=== PATIENT | female | born 1955 | race African-American/Black ===

== ENCOUNTER 2021-02-21 10:14 | Inpatient (IN) | payer OTHER ==
[2021-02-21] VITALS (7 sets, daily range): BP systolic 85–220; BP diastolic 50–131
[~2021-02-21] VITALS: Ht 175.3 cm; Wt 118.1 kg
--- NOTE | ~2021-02-21 | EMS ---
[facility] [address] [place] [address] EMS Patient Care Report Name: MASSIMO DAILEY Room #: REG [place]#: [id number] Admission: 02/21/21 Attend Phys: Discharge: Date of : 51 Report #: [id number] THIS REPORT FOR: //name// Report Transmitted: 02/21/2021 11:11 EMS Care Summary [place], [place]/[facility] Incident [id number] @ 02/21/2021 09:53 Incident Location [address] Patient MASSIMO DAILEY Female, 65 Years 1955 Patient Address [facility][note 3] [place] [address] Patient History Congestive Heart Failure (CHF),Chronic Obstructive Pulmonary Disease (COPD),Stroke/CVA,Depression,Dialysis,Knee Replacement,Type 2 Diabetes,Novel Coronavirus (COVID-19), Patient Allergies No known allergies, Patient Medications Albuterol, Unknown, Chief Complaint SEIZURES Disposition Transported No Lights/[place] Dispatch Reason Convulsions/Seizure Transported To [facility] Narrative M36 DISPATCHED ON A CONVULSIONS. M36 ARRIVED TO PENITENTIARY TO FIND P41 AT PT [facility] [address] [place] [address] EMS Patient Care Report Name: MASSIMO DAILEY Room #: REG [place]#: [id number] Admission: 02/21/21 Attend Phys: Discharge: Date of : 51 Report #: [id number] SIDE. [place] STAFF STATED PT HAD TWO SEIZURES EACH LASTING ABOUT THREE MINUTES EACH. NH STAFF STATED PT CHIEF COMPLAINT SEIZURES. PT ALERT TO VERBAL UPON EMS ARRIVAL. PT ALERT TO SELF ONLY. PT HAD NO PRIOR HISTORY OF SEIZURES. NH STAFF STATED PT "WEAK DURING BREAKFAST AND WE HAD TO FEED HER." NH STAFF STATED PT "DIALYSIS DEPENDENT AND HER DIALYSIS WAS NORMAL YESTERDAY." NH STAFF STATED PT NORMALLY ALERT AND ORIENTED X4. NH STAFF STATED PT "NOT BEHAVING LIKE HERSELF." PT MOVED TO STRETCHER VIA FOUR PERSON SHEET LIFT. PT SECURED WITH SEATBELTS. PT VS MONTORED EN ROUTE. PT REPORT GIVEN. PT MOVED TO HOSPITAL BED VIA FOUR PERSON SHEET LIFT. PT CARE AND BELONGINGS TRANSFERRED TO ER STAFF AT [facility] WITHOUT INCIDENT. M36 PLACED BACK IN SERVICE. 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,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 FlowRate: 4 Device: Nasal Cannula (NC) Response: ImprovedSucceeded, ASSISTANT ASSOCIATE PROFESSOR,BP: 124/72 M,PULSE: 112,RR: 14 R,SPO2: 90 Ox,ETCO2: ,B,PAIN: 8,GCS: 9, 09:50,Call Received 09:50,Dispatch Notified 09:53,Dispatched 09:53,En Route 09:58,On Scene 09:59,At Patient 10:08,BP: 108/50 M,PULSE: 104,RR: 16 R,SPO2: 98 Ox,ETCO2: ,BG: ,PAIN: 6,GCS: 9, 10:09,Depart Scene 10:11,At Destination 10:14,ALS Assessment,Response: UnchangedSucceeded, 10:26,Call Closed [facility] [address] [place] [address] EMS Patient Care Report Name: MASSIMO DAILEY Room #: REG [facility]#: [id number] Admission: 02/21/21 Attend Phys: Discharge: Date of : 51 Report #: [id number] Disclaimer v1.1 Copyright 2020 [employer] This EMS Care Summary contains data elements from the applicable legal record (which may be displayed differently). It is designed to provide pertinent information for the following purposes: continuity of care, clinical quality, and state data reporting. The complete legal record is available to ED staff and administrators of the receiving hospital in ES's Patient Tracker. All data is provided "as is."
--- NOTE | 2021-02-21 10:15 | NUR ---
BG 222 UPON ARRIVAL TO ED SEIZURE PADS PLACED FOR PT SAFETY
--- NOTE | 2021-02-21 10:30 | NUR ---
PLEASE SEE TRIAGE NOTE. PT PLACED ON 2L NC FOR O2 SATS BEING HIGH 80'S. PT DOES NOT WEAR OXYGEN DAILY. PT OTHER VSS ON 2L NC. PT REMAINS POST ICTAL AT THIS TIME PT STATED TO NORMALLY BE A&OX4, GCS 15. PT SKIN PT IS HOT TO THE TOUCH. PT IS NOT KNOWN TO HAVE ANY SEIZURE HX. PT STAFF STATED PT NEEDED HELP EATING THIS AM WHICH IS ABNORMAL FOR PT. WILL CLOSELY MONITOR PT
[2021-02-21 10:49] LABS: BE(vivo) 6.4 mmol/L (-2 to +3); HCO3 31.3 mmol/L (22.0-26.0); PCO2 46.5 mmHg (35.0-45.0); PO2 81.8 mmHg (80.0-100.0); pH 7.446 (7.360-7.450); sO2 96.4 % (92.0-98.0)
[2021-02-21 11:01] LABS: HEMOGLOBIN 10.7 gm/dL (12.0-15.0); MCH 26.2 pg (26.0-34.0); MCHC 30.5 g/dL (28.0-37.0); MCV 85.9 fL (80.0-100.0); PLATELET COUNT 200 thou/uL (150-400); RBC 4.08 mil/uL (4.20-5.00); RDW 15.4 % (10.5-14.5); WBC 11.4 thou/uL (4.0-11.0)
[2021-02-21 11:12] LABS: CALCIUM 9.3 mg/dL (8.5-10.1); CREATININE 4.6 mg/dL (0.6-1.0); POTASSIUM 4.9 mmol/L (3.5-5.1)
[2021-02-21] MEDS ORDERED: TYLENOL325 MG PO (11:18)
[2021-02-21 11:22] LABS: ALBUMIN 2.7 g/dL (3.4-5.0); MAGNESIUM 2.1 mg/dL (1.8-2.4); TOTAL BILIRUBIN 0.4 mg/dL (0.2-1.0); TOTAL PROTEIN 7.3 g/dL (6.4-8.2); TROPONIN-I 0.13 ng/mL (<0.06)
[2021-02-21] MEDS ORDERED: LIPITOR40 MG PO (11:26)
[2021-02-21] MEDS ORDERED: BRIMONIDINE 0.110 ML OPHTHALMIC (11:27)
[2021-02-21] MEDS ORDERED: PLAVIX 75 MG TA75 MG PO (11:27)
[2021-02-21] MEDS ORDERED: CLARITIN10 M3 PO (11:27)
[2021-02-21] MEDS ORDERED: COLACE1 EAC1 PO (11:28)
[2021-02-21] MEDS ORDERED: VOLTAREN GEL 1100 GM TOP (11:28)
[2021-02-21] MEDS ORDERED: KRISTALOSE20 GM PO (11:29)
[2021-02-21] MEDS ORDERED: NEURONTIN100 MG PO ×2 (11:32→11:38)
[2021-02-21] MEDS ORDERED: LANTUS SUBQ (11:39)
[2021-02-21 11:43] LABS: ABSOLUTE NEUTROPHILS 9.6 thou/uL (1.4-8.2); PLATELET ESTIMATE NORMAL
[2021-02-21 11:49] LABS: INR 1.05; PROTIME 11.4 Seconds (10.5-12.1)
[2021-02-21] MEDS ORDERED: HUMALOG100 UNIT/1 SUBQ (12:03)
[2021-02-21] MEDS ORDERED: IPRAT-ALBUT 0.5-3 ML INH (12:06)
[2021-02-21] MEDS ORDERED: LATANOPROST1 GM OPHTHALMIC (12:12)
--- NOTE | 2021-02-21 12:12 | NUR ---
CT SHOWS INFARCT. PT HAS HX OF STROKE. PT NOTES THAT SHE DOES NOT MAKE ANY URINE ON HER OWN. PT IS A DIAYLSIS PT, PT STATED TO HAVE HAD FULL TREATMENT OF DIAYLSIS YESTERDAY. PT STATES GENERALIZED WEAKNESS AND THAT SHE DOES NOT WALK AND IS WHEELCHAIR BOUND. PT STATES RESIDUAL EFFECTS OF RIGHT SIDED WEAKNESS. PT DENIES PAIN TO THIS RN
[2021-02-21] MEDS ORDERED: MELATONIN3 M1 PO (12:23)
[2021-02-21] MEDS ORDERED: BAZA CR.1 E1 TOP (12:25)
[2021-02-21] MEDS ORDERED: MILK OF MA400 MG/5 M PO (12:25)
[2021-02-21] MEDS ORDERED: ONDANSETRON ODT4 MG PO (12:26)
[2021-02-21] MEDS ORDERED: ROXICODONE5 M2 PO (12:28)
[2021-02-21] MEDS ORDERED: OXYCODONE HCL5 M1 PO (12:30)
--- NOTE | 2021-02-21 12:32 | NUR ---
LAST KNOWN WELL PER DC WAS 1899 YESTERDAY 02/20/21
--- NOTE | 2021-02-21 13:14 | EKG ---
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
[2021-02-21] MEDS ORDERED: MIRALAX119 GM PO (13:28)
[2021-02-21] MEDS ORDERED: AKWA TEARS EYE15 ML OPHTHALMIC (13:28)
[2021-02-21] MEDS ORDERED: TESSALON PERLE100 M1 PO (13:29)
[2021-02-21] MEDS ORDERED: SENNA8.6 MG PO (13:29)
[2021-02-21] MEDS ORDERED: TIMOLOL MALEATE5 M2 OPHTHALMIC (13:30)
--- NOTE | 2021-02-21 14:46 | NUR ---
STRAIGHT CATHETER FOR URINE AT THIS TIME. STERILE TECHNIQUE MAINTAINED. PT TOLERATED PROCEDURE WELL. PT HAD LARGE AMOUNT OF YEAST, WHICH WAS CLEANED UP. PT URINE DARK YELLOW AND CLOUDY. ED PROVIDER NOTIFIED
[2021-02-21 15:15] LABS: URINE BILIRUBIN NEGATIVE (Negative); URINE BLOOD 3+ (Negative); URINE COLOR YELLOW; URINE GLUCOSE-RANDOM* NEGATIVE (Negative); URINE KETONES NEGATIVE (Negative); URINE LEUKOCYTES-REFLEX 3+ (Negative); URINE NITRITE-REFLEX NEGATIVE (Negative); URINE PROTEIN (DIPSTICK) 3+ (Negative); URINE SPECIFIC GRAVITY 1.025 (1.005-1.035); URINE UROBILINOGEN 0.2 E.U./dl (0.2-1.0)
[2021-02-21 15:16] LABS: CASTS None Seen /LPF (None Seen); SQUAMOUS 0-3 Few /LPF (0-3); URINE CLARITY CLOUDY
[2021-02-21 15:17] LABS: BACTERIA-REFLEX >30 Many /HPF (None Seen); CRYSTALS None Seen /LPF (None Seen); URINE WBC-REFLEX >25 Many /HPF (0-5)
--- NOTE | 2021-02-21 17:55 | NUR ---
PT CARE ASSUMED AT 1600. ASSESSMENTS CHARTED. MEDICATIONS CHARTED. RAC IV. SINUS RHYTHM. O2 2LPM NC. DIALYSIS MWF. 1ST MODERNA VACCINE. SEIZURES X 2, 3 MINUTES EACH. NPO. AO X 4, WHEN RESPONSIVE. SLEEPING. ADMISSION FROM IGNITE; PT UNABLE TO RESPOND FULLY TO ADMISSION QUESTIONS.
[2021-02-22] VITALS (9 sets, daily range): BP systolic 116–136; BP diastolic 40–88
--- NOTE | 2021-02-22 03:57 | NUR ---
PT IS AWAKE AND ALERT. DROWSY AND SLEEPY. RESPONDS SOME BUT MINIMAL INTERACTION. PT IS HERE FROM [facility]. REPOS IN BED FOR COMFORT. USED PILLOWS. HANDS HAVE CARPED LUNNEL. MEDS AND NURSING CARE PROIDED. [facility] WITHIN REACH
--- NOTE | 2021-02-22 16:20 | NUR ---
PT CARE ASSUMED AT 0700. ASSESSMENTS CHARTED. MEDICATIONS CHARTED. RAC IV. SINUS RHYTHM. ANURIC. PT TAKES PILLS WHOLE. PT AWAKENED AND ASKED FOR FOOD. PT PLACED ON A RENAL DIET PER DR MCNAIR. O2 2LPM NC. ACHS.
[2021-02-23] VITALS (7 sets, daily range): BP systolic 102–148; BP diastolic 42–96
--- NOTE | 2021-02-23 07:30 | NUR ---
SLEPT ALL NIGHT BUT THIS MORNING STARTED CONVERSATION ABOUT THE DICLOFENAC GEL.DENIES PAIN.DIALYSIS TODAY.MONITOR SHOWS SR.POC CONTINUED.
[2021-02-23 09:02] LABS: HEMATOCRIT 33.5 % (37.0-47.0); HEMOGLOBIN 10.2 gm/dL (12.0-15.0); MCH 26.3 pg (26.0-34.0); MCHC 30.3 g/dL (28.0-37.0); RBC 3.85 mil/uL (4.20-5.00); RDW 15.7 % (10.5-14.5); WBC 7.8 thou/uL (4.0-11.0)
[2021-02-23 09:09] LABS: ANION GAP 9 mmol/L (7-16); BUN 44 mg/dL (7-18); CALCIUM 8.8 mg/dL (8.5-10.1); CHLORIDE 103 mmol/L (98-107); CO2 27 mmol/L (21-32); GLUCOSE 105 mg/dL (74-106); POTASSIUM 5.4 mmol/L (3.5-5.1); SODIUM 139 mmol/L (136-145)
[2021-02-23 09:13] LABS: CREATININE 6.6 mg/dL (0.6-1.0)
--- NOTE | 2021-02-23 17:54 | NUR ---
PT CARE ASSUMED AT 0700. ASSESSMENTS CHARTED. MEDICATIONS CHARTED. RAC IV. SINUS RHYTHM. ANURIC. DIALYSIS MWF; 2000 ML REMOVED. ACHS; RENAL DIET. O2 2LPM NC; PT REMOVES. PT PREFERS TO EAT WITH PLATE IN LAP. HAS DIFFICULTY SEEING MEAL OTHERWISE.
--- NOTE | 2021-02-23 22:23 | HC ---
[facility] [place] [address] CONSULTATION Name: MASSIMO DAILEY Room #: 202-P ADM IN M.R.#: [id number] Admission: 02/21/21 Attend Phys: Joycelyn Tavarez MD Discharge: Date of : 53 Report #: [id number] THIS REPORT FOR: cc: Jose York MD, Christopher B. MD Khosla, Parveen K. MD ~ DOC #: [id number] Dileep Arizmendi MD DATE OF SERVICE: 02/21/2021 HISTORY OF PRESENT ILLNESS: A 65-year-old female patient who is unable to provide any history at all. I talked to emergency room physician and got some history from him and subsequently, I was able to reach the patient's son and he provided some history. He gives a history that this patient lives in what she described as assisted living and she was admitted with a seizure. He gives a pretty involved history in this patient. This patient apparently had strokes in the past. He does not know exactly when the strokes happened, but looks like a few months ago at least and she lost her speech during one of those strokes. She gained some of it back. Then, she developed COVID. After she developed COVID, she went down. Before that, she was able to ambulate, but since the COVID, she is not able to ambulate. Prior to COVID, she needed a walker for short distance and a wheelchair for long distance, but now she cannot walk according to him. REVIEW OF SYSTEMS: A 14-point review of system was carried out and looks like she has a history of heart failure, chronic obstructive pulmonary disease, history of stroke, depression, dialysis, knee replacement, diabetes, and now seizure. There was a relevant 14-point review of system. PAST MEDICAL HISTORY: Positive for stroke, but seizures appeared to be new talking to the emergency room physician. It would appear that this patient also has sepsis. PAST MEDICAL HISTORY: Positive for stroke. FAMILY HISTORY: Unremarkable. SOCIAL HISTORY: She lives in what son described as assisted living. PHYSICAL EXAMINATION: Pretty limited. This patient did not say a single word to me. She will not follow commands. That made examination very difficult. We could not check the memory or fund of knowledge. Cranial nerve examination II-XII was attempted, but it was impossible to carry out and look for any focality. Similarly, I cannot tell if she can move anything or not and I do not tell how much is new. Sensory system examination [place] [address] CONSULTATION Name: MASSIMO DAILEY Room #: 202-P [facility] IN ..#: [id number] Admission: 02/21/21 Attend Phys: Joycelyn Tavarez MD Discharge: Date of : 51 Report #: [id number] possible to do the cerebellar exam in this patient. Cardiac examinations appear mostly unremarkable. VITAL SIGNS: Her blood pressure is 220/131, respirations 20, pulse is 97, and temperature is 98.1. LABORATORY DATA: Indicate a white count of 11.4 and she has a UTI. WBC count of more than 25. IMPRESSION: This patient has multiple problems. She had a stroke in the past, which is a nidus for seizure. On top of that, she has developed UTI and which probably triggered the seizure. She could have had another stroke also, which could have triggered the seizure. She needs to be on lifelong anticonvulsant. They gave 500 mg of Keppra there. We will continue somewhat reduced dose because of the renal failure and we will give her once a day. She is already on gabapentin and looks like seizures occurred in spite of gabapentin and that is usually a bad news. Her prognosis is guarded, but we will see what the MRI shows, what the EEG shows, which has been ordered and further management will depend upon that. I spent more than 50 minutes of time taking care of this patient including counseling, coordinating, and reviewing her studies and records. Dileep Arizmendi MD PK/[facility] <ELECTRONICALLY SIGNED> By: Dileep Arizmendi MD 02/23/213 1735 19 Dileep Arizmendi MD /nt
--- NOTE | 2021-02-23 22:23 | EEG ---
[facility] [place] [address] ELECTROENCEPHALOGRAM Name: MASSIMO DAILEY Room #: 202-P [facility] IN M.R.#: [id number] Admission: 02/21/21 Attend Phys: Joycelyn Tavarez MD Discharge: Date of : 51 Report #: [id number] THIS REPORT FOR: //name// DOC #: [id number] Dileep Arizmendi MD DATE OF SERVICE: 02/22/2021 This patient is being evaluated for seizure. EEG was done by placing the electrode by standard 10-20 system of electrode placement. Both referential and sequential montages were used for recording. Background activity in this patient's EEG is about 7 Hz and 30 microvolt. The photic stimulation is unremarkable. EEG becomes even somewhat more slow and that may be associated with some sleep Throughout the record, no active epileptiform activity was noticed. IMPRESSION: This is an abnormal EEG because it is disorganized and poorly formed. There is a nonspecific abnormality which can occur with encephalopathy, effect of psychotropic medication, dementia, etc. Clinical correlation is recommended. Dileep Arizmendi MD PK/[facility] <ELECTRONICALLY SIGNED> By: Dileep Arizmendi MD 02/23/21 2223 0943 0955 Dileep Arizmendi MD /nt
[2021-02-24 04:45] VITALS: BP 123/42
--- NOTE | 2021-02-24 06:38 | NUR ---
PAIN WELL CONTROLLED WITH HYDROCODONE.TURN Q2.MONITOR SHOWS SR.POC CONTINUED.
[2021-02-24 07:38] VITALS: BP 133/30
--- NOTE | 2021-02-24 09:35 | NUR ---
Patient admits with seizures. Patient admits from [facility]. She is ltc. Recently skilled care at [facility]. Patient A/O aware of possible dc to [facility] today. Patient with possible dc after MRI. Faxed clinical update to [facility]. Updated [facility]. Sp with Criss at [facility]. casemgt following.
[2021-02-24 11:35] LABS: ALBUMIN 2.4 g/dL (3.4-5.0); CHOLESTEROL 118 mg/dL (<200); DIRECT BILIRUBIN < 0.1 mg/dL (<0.1-0.2); HDL CHOLESTEROL 35 mg/dL (>40); LDL CHOLESTEROL 64 mg/dL (<100); SGOT 19 U/L (15-37); SGPT 9 U/L (30-65); TC:HDL 3.4 Ratio (Not establshd); TOTAL BILIRUBIN 0.3 mg/dL (0.2-1.0); TOTAL PROTEIN 6.7 g/dL (6.4-8.2); TRIGLYCERIDE 99 mg/dL (<150); VLDL 20 mg/dL (<40)
[2021-02-24 12:30] VITALS: BP 134/62
--- NOTE | 2021-02-24 12:48 | NUR ---
1030 DR GONZALES CALLED CONCERNING ECHO REPORT. DR PANDA INFORMED AND ORDERS NOTED
[2021-02-24 16:31] VITALS: BP 113/56
[2021-02-24 17:06] LABS: HEP B SURFACE Ab(ANTI-HBS Reactive (()); HEPATITIS B SURFACE AG Negative (Negative)
--- NOTE | 2021-02-24 19:33 | NUR ---
PATIENT IS PROGRESSING TOWARDS OUTCOME GOALS, AFEBRILE TODAY. REMAINS A/O X4. ASSIST WITH TURNING AND REPOSITIONING Q2H. MRI SHEET FAXED TO MRI THIS AM AND AGAIN THIS AFTERNOON, NO ONE IN MRI WHEN CALLED AT 1630 TODAY. FAMILY IN TO VISIT.
[2021-02-24 20:56] VITALS: BP 136/60
[2021-02-25 03:30] VITALS: BP 158/75
[2021-02-25 07:10] VITALS: BP 147/61
--- NOTE | 2021-02-25 07:40 | NUR ---
PATIENTS CARES WERE ASSUMED AT SHIFT CHANGE.PATIENT WAS ASSESSED AND MEDS WERE PASSED. PATIENT IS A PLEASENT LADY. SHE HAD A STOOL THIS SHIFT. SOFT STOOL. PATIENT REQUESTED THAT SHE BE GIVEN A BRIEF WHEN SHE GO DOWN FOR HER CHAY. ROUNDS WERE MADE AND THE BED IS IN A LOW AND LOCKED POSITION.
[2021-02-25 11:10] VITALS: BP 157/84
[2021-02-25 15:10] VITALS: BP 149/89
--- NOTE | 2021-02-25 15:47 | NUR ---
cm provided faheem with ignite/car[place]let with updated on pt.
--- NOTE | 2021-02-25 16:54 | NUR ---
ASSESSMENT CHARTED - MEDS PER NOV - GIVEN HYDROCODONE FOR CO'S OF PAIN IN KNEES WITH MOD RELIEF. NYDIA DIET AND FLUIDS. HAS SPENT THE DAY RESTING IN BED. PT INCONTINENT OF STOOL - BOTTOM NOTED TO BE INTACT WITH NO REDNESS NOTED - PT NOTED TO HAVE SOFT - BOGGY HEELS - HEELS PLACED ON PILLOW. DIALYSIS COMPLETED THIS AM 2.5 LETRES REMOVED. CHAY CANCELLED FOR TODAY AND TO BE DONE TOMORROW DUE TO CONFLICT WITH DIALYSIS. PT WAS TO HAVE MRI TODAY , DUE TO PACER IN R CHEST TEST NOT ABLE TO BE COMPLETED - NEURO MADE AWARE. NO CO'S AT THE PRESENT TIME APPEARS TO BE RESTING COMFORTABLY.
[2021-02-25 19:49] VITALS: BP 150/74
[2021-02-26] VITALS (8 sets, daily range): BP systolic 139–210; BP diastolic 47–102
[2021-02-26 04:54] LABS: HEMATOCRIT 37.4 % (37.0-47.0); HEMOGLOBIN 11.3 gm/dL (12.0-15.0); MCHC 30.2 g/dL (28.0-37.0); MCV 86.2 fL (80.0-100.0); RBC 4.33 mil/uL (4.20-5.00); WBC 6.8 thou/uL (4.0-11.0)
[2021-02-26 05:17] LABS: CALCIUM 9.5 mg/dL (8.5-10.1); POTASSIUM 4.7 mmol/L (3.5-5.1)
[2021-02-26 05:34] LABS: CREATININE 4.1 mg/dL (0.6-1.0)
--- NOTE | 2021-02-26 07:23 | NUR ---
PATIENTS CARES WERE ASSUMED AT SHIFT CHANGE,. PATIENT WAS ASSESSED AND MEDS WERE PASSED. PATIENT HAD 2 BMS THIS SHIFT. PATIENT ONLY STATES SHE WANTS TO GO HOME.
--- NOTE | 2021-02-26 09:38 | 2DMMODE ---
[facility] [place] [address] 2 D/M-MODE ECHOCARDIOGRAM Name: MASSIMO DAILEY Room #: 202-P [facility] IN .R.#: [id number] Admission: 02/21/21 Attend Phys: Joycelyn Tavarez MD Discharge: Date of : 51 Report #: [id number] THIS REPORT FOR: cc: Jose York MD, Christopher B. MD Santiago, Patrick MD [facility] ~ ADDENDUM APPROVED REPORT Study performed: 02/24/2021 08:05:23 EXAM: Comprehensive 2D, Doppler, and color-flow Echocardiogram Patient Location: In-Patient Room #: 202 Status: routine BSA: 2.31 HR: 70 bpm BP: 133/41 mmHg Rhythm: NSR Other Information Study Quality: Good Risk Factors: Cardiac Risk Factors: HTN Indications Mitral Valve Disease CVA/TIA 2D Dimensions RVDd: 54.22 mm IVSd: 14.55 (7-11mm) LVOT Diam: 24.16 (18-24mm) LVDd: 43.50 mm PWd: 13.22 (7-11mm) LVDs: 29.46 (25-40mm) Left Atrium: 56.26 (27-40mm) Aortic Root: 24.71 mm Volumes Left Atrial Volume (Systole) Single Plane 4CH: 69.50 mL Single Plane 2CH: 86.28 mL Biplane LA Volume: 86.00 mL LA ESV Index: 37.00 mL/m2 Aortic Valve [facility] [address] [place] [address] 2 D/M-MODE ECHOCARDIOGRAM Name: MASSIMO DAILEY Room #: 202-P [facility] IN .R.#: [id number] Admission: 02/21/21 Attend Phys: Joycelyn Tavarez MD Discharge: Date of : 51 Report #: [id number] AoV Peak Curly.: 2.35 m/s AO Peak Gr.: 22.04 mmHg LVOT Max P.36 mmHg AO Mean Gr.: 10.48 mmHg LVOT Mean P.42 mmHg AO V2 Mean: 1.49 m/s LVOT Max V: 1.04 m/s AO V2 VTI: 53.83 cm LVOT Mean V: 0.72 m/s PAOLO (VTI): 2.09 cm2 LVOT V1 VTI: 24.52 cm PAOLO Vmax: 2.04 cm2 AI Vmax: 4.66 m/s SV (LVOT): 112.38 mL AI Humphreys: 4.26 m/s2 AI PHT: 319.39 ms Mitral Valve MV Peak Gr.: 26.85 mmHg MV Mean Gr.: 11.02 mmHg E/A Ratio: 1.3 MV Decel. Time: 206.93 ms MV E Max Curly.: 2.24 m/s MV A Curly.: 1.77 m/s MV Max Curly.: 2.59 m/s MV Mean Curly.: 1.50 m/s MV VTI: 774.50 mm MVA VTI: 145.10 mm2 MV PHT: 60.01 ms MVA (PHT): 3.72 cm2 IVRT: 46.14 ms Pulmonary Valve PV Peak Curly.: 1.03 m/s PV Peak Gr.: 4.27 mmHg Pulmonary Vein P Vein S: 0.44 m/s P Vein A: 0.19 m/s P Vein D: 0.54 m/s P Vein A Dur.: 115.3 msec P Vein S/D Ratio: 0.81 Tricuspid Valve TR Peak Curly.: 3.89 m/s RAP Estimate: 7.00 mmHg TR Peak Gr.: 60.44 mmHg RVSP: 67.00 mmHg Left Ventricle The left ventricle is normal size. There is normal LV segmental wall motion. Mild to moderate concentric left ventricular hypertrophy. Left ventricular systolic function is normal. The left ventricular ejection fraction is within the normal range. LVEF is 65-70%. Transmitral Doppler flow pattern suggests impaired LV relaxation[place] [address] 2 D/M-MODE ECHOCARDIOGRAM Name: MASSIMO DAILEY Room #: 202-P [facility] IN M.R.#: [id number] Admission: 02/21/21 Attend Phys: Joycelyn Tavarez MD Discharge: Date of : 51 Report #: [id number] Right ventricle is dilated. Right ventricle is mildly hypokinetic. Atria Left atrium is mildly dilated. Right atrium is dilated. Aortic Valve Aortic valve leaflets are moderately thickened. Mild-moderate aortic regurgitation. Mild aortic stenosis. Highest mean aortic valve gradient is 10mmHg Calculated PAOLO by the continuity equation is __2.0__cm2. Mitral Valve The mitral valve is normal in structure. There is a bioprosthetic mitral valve. Mild mitral regurgitation. There is normal mitral valve excursion. Tricuspid Valve Doppler gradients for this tricuspid valve are normal. Mild to moderate tricuspid regurgitation. The RVSP is _67 mmHg. Two small tricuspid valve vegetation is present. Pulmonic Valve The pulmonary valve is normal in structure. There is no pulmonic valvular regurgitation. Great Vessels The aortic root is normal in size. IVC is normal in size and collapses >50% with inspiration. Pericardium There is no pericardial effusion. There is no pleural effusion. <Conclusion> Normal left ventricular size with moderate concentric hypertrophy Ejection fraction 60% Right ventricle mildly dilated/hypokinetic Mild biatrial enlargement Color-flow Doppler study performed of the aortic/mitral/tricuspid/pulmonary valve Aortic valve moderately calcified Mild aortic valve stenosis with an aortic valve area estimated two-point centimeters square and a mean gradient of [address] [address] 2 D/M-MODE ECHOCARDIOGRAM Name: DAILEYMASSIMO Room #: 202-P [facility] IN M.R.#: [id number] Admission: 02/21/21 Attend Phys: Joycelyn Tavarez MD Discharge: Date of : 51 Report #: [id number] Mild-Moderate aortic valve insufficiency Moderate the mitral annular calcification Mild mitral valve insufficiency Mobile echogenicity/- 1.5 long, 0.5 cm wide, anterior leaflet of the tricuspid valve, atrial size, cannot rule out vegetation Mild tricuspid valve insufficiency Severe pulmonary hypertension, PA pressure estimated 67 mmHg No pericardial effusion Normal aortic root size. Please note findings mitral valve re: questionable vegetation CHAY may be helpful to further delineate echogenicity mitral valve <ELECTRONICALLY SIGNED> By: Kevin Gee MD, FACC 02/26/2137 6 Kevin Gee MD, FACC /INF
--- NOTE | 2021-02-26 10:47 | TEE ---
[facility] [place] [address] TRANSESOPHAGEAL ECHOCARDIOGRAM Name: MASSIMO DAILEY Room #: 202-P [facility] IN M.R.#: [id number] Admission: 02/21/21 Attend Phys: Joycelyn Tavarez MD Discharge: Date of : 51 Report #: [id number] THIS REPORT FOR: cc: Jose York MD, Christopher B. MD Santiago, Patrick MD [facility] ~ ADDENDUM APPROVED REPORT Study performed: 02/26/2021 08:12:39 EXAM: Comprehensive 2D, Doppler, and color-flow Echocardiogram Patient Location: In-Patient Room #: 9 Status: routine BSA: 2.31 HR: 83 bpm BP: 130/44 mmHg Rhythm: NSR Other Information Study Quality: Good Indications Endocarditis Echo Enhancing Agent Indication: Rule out Shunt Agent(s) / Amount(s) Used: Agitated Saline 7 cc Procedure After obtaining informed consent, patient underwent transesophageal echo in the [facility] [employer]. Type of Sedation : Conscious Sedation Sedation was administered by Janina Peña RN. Sedation start time: 829 Case end Time: 837 Sedation was achieved intravenously with: Versed (3 mg) Fentanyl (50 mcg) Transesophageal probe was inserted and advanced into esophagus without difficulty by Kevin Gee MD. Echo enhancement indication: R/O Septal defect. Echo enhancement agent administered: Agitated Saline The CHAY was performed without complications. Throughout the procedure, the blood pressure, pulse oximetry, cardiac [facility] [address] [place] [address] TRANSESOPHAGEAL ECHOCARDIOGRAM Name: MASSIMO DAILEY Room #: 202-P ADM IN M.R.#: [id number] Admission: 02/21/21 Attend Phys: Joycelyn Tavarez MD Discharge: Date of : 51 Report #: [id number] rhythm, and rate were monitored. The patient tolerated the procedure without adverse effects. Recovery from conscious sedation was uneventful and vital signs were stable. Left Ventricle The left ventricle is normal size. There is normal LV segmental wall motion. Moderate concentric left ventricular hypertrophy. The left ventricular systolic function is normal. The left ventricular ejection fraction is within the normal range. LVEF is 55-60%. Right Ventricle Right ventricle is dilated. Right ventricle is hypokinetic. Atria Left atrium is dilated. Right atrium is dilated. Aortic Valve The aortic valve is normal in structure. Aortic valve is calcified. Trace aortic regurgitation. Small aortic valve vegetation is present. Mild aortic stenosis. Mitral Valve Bioprosthesis leaflets are thickened Mild mitral regurgitation. Tricuspid Valve The tricuspid valve is normal in structure. Mild to moderate tricuspid regurgitation. Moderate size tricuspid valve vegetation is present. Vegetation is independently mobile. Pulmonic Valve The pulmonary valve is normal in structure. Great Vessels The aortic root is normal in size. Pericardium There is no pericardial effusion. <Conclusion> Consent was obtained Timeout performed After appropriate sedation esophageal probe was advanced without difficulty [facility] [address] [place] [address] TRANSESOPHAGEAL ECHOCARDIOGRAM Name: MASSIMO DAILEY Room #: 202-P ADM IN M.R.#: [id number] Admission: 02/21/21 Attend Phys: Joycelyn Tavarez MD Discharge: Date of : 51 Report #: [id number] Normal left ventricle size with moderate concentric hypertrophy Ejection fraction 60% Right ventricle mildly dilated/hypokinetic Mild biatrial enlargement Aortic valve trileaflet Small echogenicity less than 0.5 cm/around the noted at the base suggestive of vegetation Moderate mitral annular calcification. No obvious vegetation detected Mild mitral valve insufficiency Pulmonary valve appears normal Echogenicity noted at the tricuspid valve about 0.5 to 1 cm in length/mobile suggestive of vegetation Mild to moderate tricuspid valve insufficiency No pericardial effusion Normal aortic root size Aorta minimal calcification Study is suggestive of vegetations at the tricuspid valve as well as aortic valve No evidence of ASD/VSD by color flow/bubble study Patient tolerated procedure well <ELECTRONICALLY SIGNED> By: Kevin Gee MD, FACC 02/26/217 46 46 Kevin Gee MD, FACC /INF
--- NOTE | 2021-02-26 11:32 | HC ---
[facility] [place] [address] CONSULTATION Name: MASSIMO DAILEY Room #: 202-P ADM IN M.R.#: [id number] Admission: 02/21/21 Attend Phys: Joycelyn Tavarez MD Discharge: Date of : 51 Report #: [id number] THIS REPORT FOR: cc: Jose York MD, Christopher B. MD Barry, Joseph W. MD ~ DOC #: [id number] Mayur Kaur MD DATE OF SERVICE: 02/24/2021 INFECTIOUS DISEASE CONSULTATION ATTENDING PHYSICIAN: Dr. Tavarez. REASON FOR EVALUATION: Possible endocarditis. HISTORY OF PRESENT ILLNESS: Chart was reviewed. The patient was examined. This is a 65-year-old woman with known diabetes mellitus, has been complicated by end-stage renal disease. She is on thrice weekly hemodialysis, she states for about 5 years, who presented with describes new onset seizures, these were witnessed apparently at the facility she resides. Evaluation was undertaken. CT suggested possible subacute left parietal infarct. She is scheduled to undergo MRI, for further evaluation underwent CHAY, question of a tricuspid valve vegetations noted. On echo, there is question of prosthetic heart valve, although she denies any previous history. There is probably a degree of encephalopathy; however. She denies significant pain and it is not clear from discussion that she has had any fevers, although on admission, her temperature was up to 102. She was evaluated with straight catheterization. Denies urine output, was able to collect some urine. She had moderate to marked pyuria. Culture was unrevealing with growth of multiple organisms, treated empirically with ceftriaxone and a dose of vancomycin. ALLERGIES: None known. MEDICATIONS: Currently include docusate sodium, levetiracetam, acetaminophen and hydrocodone, ceftriaxone, clopidogrel, atorvastatin, diclofenac, Timolol, ____. PAST MEDICAL HISTORY: As described above, diabetes mellitus complicated by end-stage renal disease on hemodialysis, peripheral neuropathy, previous stroke with right hemiparesis, has a cardiomyopathy, history of congestive heart failure, rheumatic heart disease, previous prosthetic mitral valve replacement, COPD, chronic respiratory failure, onset seizure. SOCIAL HISTORY: Nonsmoker, no ethanol, no illicit drug use. [facility] [address] [place] [address] CONSULTATION Name: MASSIMO DAILEY Room #: 202-P [facility] IN [facility].#: [id number] Admission: 02/21/21 Attend Phys: Joycelyn Tavarez MD Discharge: Date of : 51 Report #: [id number] FAMILY HISTORY: Noncontributory. REVIEW OF SYSTEMS: Otherwise unremarkable. Does admit to bilateral lower extremity pain as her complaint. PHYSICAL EXAMINATION: GENERAL: She appears chronically ill, undernourished. She is obese, mild to moderate distress, mildly encephalopathic. VITAL SIGNS: Temperature 97.8, pulse 76, respirations 16, blood pressure is 157/84. SKIN: Warm, dry, no rashes. HEENT: Normocephalic. Extraocular muscles intact. NECK: Supple. LUNGS: Scattered crackles at the bases. HEART: Regular. I do not appreciate any murmur. ABDOMEN: Obese, soft and nontender. No peritoneal signs. EXTREMITIES: Lower extremities have small amount of edema. /RECTAL: Deferred. LABORATORY DATA: Electrolytes from yesterday, sodium 139, potassium 5.4, chloride 103, bicarbonate 27, anion gap of 9, BUN and creatinine 44 and 6.6, glucose of 105, albumin of 2.4, total protein 6.7. Echo notes the mitral prosthetic valve. Other comments that may have vegetation on the tricuspid valve described as ____ small aortic valve, was moderately thickened, mild to moderate aortic regurgitation, mild stenosis. White count of 7.8, H and H 10.2 and 33.5, platelets of 163. Blood cultures collected on the are sterile thus far. Repeat cultures are pending. ASSESSMENT: 1. Possible tricuspid valve vegetation. 2. Known history of mitral valve replacement with bioprosthesis. 3. Diabetes mellitus complicated by vasculopathy. 4. End-stage renal disease on dialysis. 5. Peripheral neuropathy. 6. Cardiomyopathy with congestive heart failure. 7. Morbid obesity. 8. Malnutrition. 9. Onset of seizures with previous history of stroke. PLAN: We will continue to pursue a diagnosis noted CHAY scheduled for tomorrow. We will await those results. I think it is reasonable to discontinue the ceftriaxone at this point. She was febrile when she came in, probably has adequate treatment for UTI as difficult to assess, short of doing additional [address] [address] CONSULTATION Name: DAILEYMASSIMO Room #: 202-P [facility] IN M.R.#: [id number] Admission: 02/21/21 Attend Phys: Joycelyn Tavarez MD Discharge: Date of : 51 Report #: [id number] procedure with straight catheterization, difficult to ascertain the degree of baseline encephalopathy. No evidence of peripheral signs of SBE, clinically is not overtly toxic ____ acute infectious endocarditis. We will add incentive spirometry. We will follow. Mayur Kaur MD JWB/ALL <ELECTRONICALLY SIGNED> By: Mayur Kaur MD 02/26/21 1132 [id number] Mayur Kaur MD /nt
--- NOTE | 2021-02-26 16:01 | NUR ---
[facility] updated and they can accept the pt and provide iv atb and dialysis. She still has skilled medicare days and she is also a ltc resident there. Pt had CHAY today. DC time frame uncertain. She will likely need 4-6 weeks of iv atb.
[2021-02-27 03:40] VITALS: BP 133/70
--- NOTE | 2021-02-27 05:17 | NUR ---
PATIENTS CARES WERE ASSUMED AT SHIFT CHANGE. PATIENT WAS ASSESSED AND MEDS WERE PASSED. PATIENT DID SLEEP THE MAJORITY OF THIS SHIFT WITH NO REQUEST. ROUNDS WERE MADE, THE BED IS IN A LOW AND LOCKED POSITION. ROUNDS WERE DONE
[2021-02-27 05:23] LABS: HEMATOCRIT 36.2 % (37.0-47.0); MCHC 30.4 g/dL (28.0-37.0); MCV 85.4 fL (80.0-100.0); RBC 4.24 mil/uL (4.20-5.00); RDW 15.4 % (10.5-14.5); WBC 5.7 thou/uL (4.0-11.0)
[2021-02-27 05:47] LABS: CALCIUM 9.2 mg/dL (8.5-10.1); POTASSIUM 4.3 mmol/L (3.5-5.1)
[2021-02-27 05:50] LABS: CREATININE 5.2 mg/dL (0.6-1.0)
[2021-02-27 07:50] VITALS: BP 172/80
--- NOTE | 2021-02-27 11:09 | NUR ---
Case discussed with the care team. Possible dc tue/tuesday back to SNF at [facility]. They can accept and the weekend staff will need to call [facility] at [phone] to arrange transport, fax orders and get the number for report. A chart copy and the final dc summary/dc instructions will need to be sent with the pt. Pt dialyzing today. Possible iv vanco with dialysis and ongoing therapies will be needed at the SNF.
[2021-02-27 11:15] VITALS: BP 165/89
[2021-02-27 15:15] VITALS: BP 134/35
--- NOTE | 2021-02-27 18:30 | NUR ---
PATIENT RECEIVED HD THIS SHIFT WITHOUT COMPLICATIONS. VANCOMYCIN DOSE GIVEN AT THE END OF HD PER ORDERS. PATIENT CONTINUES TO BE A/O X2-3 WITH INTERMITTENT CONFUSION AND FORGETFULNESS. PRN PAIN MEDICATION GIVEN PER ORDERS FOR PATIENT PAIN IN FEET. PT AND OT WORKED WITH PATIENT.
[2021-02-27 19:40] VITALS: BP 157/59
[2021-02-27 23:38] VITALS: BP 125/48
[2021-02-28 03:09] VITALS: BP 151/58
--- NOTE | 2021-02-28 04:23 | NUR ---
PT IS ALERT AND OREINTED X4. FORGETFULL AT TIMES. HAS A DIALYISS PORTH TO CHEST. FISTULA ON LEFT SIDE BRUIT AND THRILL. REPOSITION PT FOR COMFORT. AND BARRRIER CREAM TO COCCYX. COMPLAINS OF LEGS PAIN AND CREAM TO LEGS FOR COMFORT. TYLNEOL GIVEN TO FOR PAIN . CALL LIGHT WITHIN REACH IF NEEDS ASSITANCE FOR NURUSING
[2021-02-28 07:30] VITALS: BP 142/61
[2021-02-28 11:30] VITALS: BP 145/52
[2021-02-28 15:20] VITALS: BP 148/52
--- NOTE | 2021-02-28 15:59 | NUR ---
PT ALERT AND ORIENTED. VSS. REPORT FEELING MUCH BETTER TODAY. SEEN BY DR. TAYLOR. WAITING FOR DR. PRIETO'S INPUT ON ABX TREATMENT POST DISCHARGE. DISCHARGE PLAN ON HOLD FOR TODAY. PLAN TO BE DISCHARGE IN AM TO SNF.
[2021-02-28 20:00] VITALS: BP 144/65
--- NOTE | 2021-03-01 02:49 | NUR ---
PT LYING IN BED. TURN PER PT REQUEST. [facility] PROVIDING PAIN RELIEF. INCONTINENT OF BOWEL. RESTING COMFORTABLY. NO NEEDS VOICED. CALL LIGHT WITHIN REACH. FREQUENT OBSERVATION.
[2021-03-01 04:10] VITALS: BP 149/63
[2021-03-01 07:20] VITALS: BP 156/75
[2021-03-01] MEDS ORDERED: KEPPRA 500 MG500 M1 PO (10:16)
[2021-03-01] MEDS ORDERED: ELIQUIS5 M1 PO (10:29)
[2021-03-01] MEDS ORDERED: VANCO 500500 MG/100 IV (10:30)
--- NOTE | 2021-03-01 14:22 | NUR ---
ASSESSMENT CHARTED. PT ALERT AND ORIENTED WITH FORGETFULNESS. VSS. PRN PAIN MED GIVEN WITH PARTIAL RELIEF. SEEN BY DR. TAYLOR. ORDERS GIVEN TO DISCHARGE PT TO SNF. REPORT CALLED IN TO THE NURSE. TRANSPORTATION SET FOR 6920. NO CONCERNS AT THIS TIME.
[2021-03-02 21:06] LABS: SYPHILIS AB Non Reactive (Non Reactive)
--- NOTE | 2021-03-03 06:46 | HC ---
[facility] [place] [address] CONSULTATION Name: MASSIMO DAILEY Room #: 202-P [facility] IN M.R.#: [id number] Admission: 02/21/21 Attend Phys: Joycelyn Tavarez MD Discharge: 03/01/21 Date of : 51 Report #: [id number] THIS REPORT FOR: cc: Jose York MD, Christopher B. MD Al-Absi,Kirk Leyva MD ~ DOC #: [id number] Kirk Sharp MD REASON FOR CONSULTATION: End-stage renal disease. HISTORY OF PRESENT ILLNESS: Obtained from the medical chart. The patient is currently very lethargic and appears postictal. She presented from her facility with a report that she was having a tonic-clonic seizure. No other details are available. The patient is end-stage renal disease, maintained on hemodialysis. The patient also is known to have a stroke. She previously had some issues with COVID-19. Health deteriorated after her COVID-19. She is currently residing in a nursing facility. PAST MEDICAL HISTORY: 1. From the medical chart stroke. 2. Seizure disorder. 3. End-stage renal disease, maintained on hemodialysis. 4. Diabetes mellitus. 5. Hypertension. [facility] MEDICATIONS. 1. Plavix. 2. Gabapentin. 3. Insulin. 4. Atorvastatin. 5. Lactulose. FAMILY HISTORY: Unable to obtain given the patient's current mental status. SOCIAL HISTORY: All what I gathered is that she resides in a nursing facility. No other details are available given the patient's medical condition and status. REVIEW OF SYSTEMS: Unobtainable given the patient's current mental status. PHYSICAL EXAMINATION: GENERAL: Appears very lethargic. VITAL SIGNS: Temperature 36.7, pulse rate 77, respiratory rate 18. HEAD AND NECK: No jugular venous distention. CHEST: Decreased air entry bilaterally. CARDIOVASCULAR: No rubs detected. ABDOMEN: Soft, nontender. [facility] [address] [place] [address] CONSULTATION Name: MASSIMO DAILEY Room #: 202-P [facility] IN [facility].#: [id number] Admission: 02/21/21 Attend Phys: Joycelyn Tavarez MD Discharge: 03/01/21 Date of : 51 Report #: [id number] EXTREMITIES: Lower extremities, +3 edema. Upper extremities, +3 edema. LABORATORY DATA: White blood cell count is 11.4. Sodium is 137, potassium is 4.9, BUN is 27, creatinine is 4.6. ASSESSMENT AND PLAN: 1. End-stage renal disease, dialysis every Tuesday, Tuesday, Tuesday. 2. New left subacute parietal infarct. 3. Hypertension. 4. Diabetes mellitus. 5. History of prosthetic heart disease. 6. Continue with the usual hemodialysis every Tuesday, Tuesday and Tuesday. Seizure management as per Neurology service. 7. New subacute parietal infarct as per Neurology service. 8. Watch blood pressure. 9. Watch blood sugar. 10. We will continue to follow during her hospital stay. Minimize all psychotic or neurotropic medications. Kirk Sharp MD AIA/YADY <ELECTRONICALLY SIGNED> By: Kirk Sharp MD 03/03/21 0646 0726 Kirk Sharp MD /nt
== END 2021-03-01 15:29 | DRG 871 ==
LOC: ER 10:14 → 2N 14:38 → EROBS 14:38 → 2N 15:56
PROVIDERS: Emergency Medicine; Hospitalist; Psychiatry & Neurology Neuromuscular Medicine; ADMIT Internal Medicine; ATTEND Internal Medicine
PROC: 00JU3ZZ Inspection of Spinal Canal, Percutaneous Approach (ICD-10-PCS; 2021-02-21)
PROC: 5A1D70Z Performance of Urinary Filtration, Intermittent, Less than 6 Hours Per Day (ICD-10-PCS; 2021-02-23)
PROC: 5A1D70Z Performance of Urinary Filtration, Intermittent, Less than 6 Hours Per Day (ICD-10-PCS; 2021-02-25)
PROC: B24BZZ4 Ultrasonography of Heart with Aorta, Transesophageal (ICD-10-PCS; principal; 2021-02-26)
PROC: 5A1D70Z Performance of Urinary Filtration, Intermittent, Less than 6 Hours Per Day (ICD-10-PCS; 2021-02-27)
DX: A41.9 Sepsis, unspecified organism (principal); N18.6 End stage renal disease; G93.41 Metabolic encephalopathy; I63.89 Other cerebral infarction; N39.0 Urinary tract infection, site not specified; I69.351 Hemiplegia and hemiparesis following cerebral infarction affecting right dominant side; I13.2 Hypertensive heart and chronic kidney disease with heart failure and with stage 5 chronic kidney disease, or end stage renal disease; J96.10 Chronic respiratory failure, unspecified whether with hypoxia or hypercapnia; E46 Unspecified protein-calorie malnutrition; I38 Endocarditis, valve unspecified; I42.9 Cardiomyopathy, unspecified; I82.621 Acute embolism and thrombosis of deep veins of right upper extremity; R56.9 Unspecified convulsions; E11.22 Type 2 diabetes mellitus with diabetic chronic kidney disease; F32.9 Major depressive disorder, single episode, unspecified; J44.9 Chronic obstructive pulmonary disease, unspecified; I50.9 Heart failure, unspecified; E11.42 Type 2 diabetes mellitus with diabetic polyneuropathy; E66.01 Morbid (severe) obesity due to excess calories; Z20.822 Contact with and (suspected) exposure to COVID-19; Z96.651 Presence of right artificial knee joint; Z79.4 Long term (current) use of insulin; Z79.01 Long term (current) use of anticoagulants; Z79.899 Other long term (current) drug therapy; Z99.2 Dependence on renal dialysis; Z68.38 Body mass index [BMI] 38.0-38.9, adult; Z86.16 Personal history of COVID-19
CPT/HCPCS: 10081; 32100